=== PATIENT | female | born 1970 | race Two or more races ===

== ENCOUNTER 2016-10-19 11:25 | Outpatient (CLI) | payer OTHER ==
[~2016-10-19] VITALS: Ht 152.4 cm; Wt 56.8 kg
[2016-10-19 11:53] VITALS: BP 131/68; PULSE 73; RESP 18; Ht 152.4 cm; Wt 56.8 kg
[2016-10-19] MEDS ORDERED: MTF1000T PO (12:29)
[2016-10-19] MEDS ORDERED: GLIP5TAB13 PO (12:29)
[2016-10-19] MEDS ORDERED: SITA50TA2 PO (12:29)
--- NOTE | 2016-10-19 12:47 | PN ---
Date/Time of Note Date/Time of Note DATE: 10/19/16 TIME: 12:43 Outpatient Progress Note Chief Complaint TIA/migraine headaches/diabetes/ HPI TIA/patient was recently admitted, patient had weakness of right side, but at present no weakness on right side, patient also had right side eye watering, patient was told that patient had possible stroke on the right side, by health care specialist, but MRI is negative, Migraine headache patient has occasional migraine headache, patient on medication, Diabetes no pleuritic supple due to hypoglycemia, patient on multiple blood sugar medication, blood sugar control, Review of Systems Const: No Fever, no chills, no Wt. loss, no Fatigue, normal appetite, no diaphoresis. Eyes: No pain, no discharge, no redness, no visual change, no foreign body. ENT: No pain, no bleeding, no congestion, no sore throat, no dysphagia, no discharge or rhinitis. Lymph: No adenopathy, no tender nodes, no lymphedema. Resp: No SOB, no cough, no sputum, no wheezing, no chest pain. CV: No chest pain, no palpitaions, no HERNANDEZ, no PND, no edema. GI: Normal appetite, no pain, no nausea, no vomiting, no diarrhea, no blood, no constipation. : No frequency, no urgency, no dysuria, no hematuria, no flank pain, no discharge, no bleeding. Musc: no back pain, no neck pain, no knee pain, no restricted ROM. Skin: No rash, no skin lesions, no erythema, no laceration, no bruising, no pruritus. Neuro: Occasional migraine BOWEN, and dizziness, no syncope, no seizure, no focal- weakness. Endo: No polyuria, no polydypsia, no dry-skin, no temp-intolerance. Psych: No hallucinations, no depression, no anxiety, no suicidal ideation. Ext: No edema, no pain, no ulcer, no weakness. Physical Exam Vital Signs Date Time Temp Pulse Resp B/P Pulse Ox O2 Delivery O2 Flow Rate FiO2 10/19/16 11:53 98.2 73 18 131/68 99 Room Air General Appearance: A 46 year-old female who appears well-developed, well- nourished, in no acute distress. HEENT: Head normocephalic, atraumatic. Pupils equal, round, reactive to light and accommodate. Sclerae are no jaundice. Nasal turbinates pink without erythema or nasal discharge. Mucous membranes pink and moist without lesions. Oropharynx clear without any exudate or discharge. NECK: Supple. Trachea midline, No thyromegaly, No cervical lymphadenopathy, No mass, No carotid bruits, No JVD, Carotid pulses 2+ bilaterally. PULMONARY: Clear to auscultaion bilaterally, No retractions, Chest expansion symmetric bilaterally, no rales, no ronchi, no dulness on percussion. CARDIAC: Normal SI and S2, Regular rate and rythm, no murmur, gallop, or rub. GASTROINTESTINAL: Abdomen is soft, non-tender, Non Rigid, No distention, Positive bowel sounds x4 quadrants, Liver normal. SKIN: Warm, dry, no rash, no bruise, no echmosis. EXTREMITIES: Bilateral lower extremities normal, no edema, no phlabitus, pulse palpable, no contracture. MUSCULOSKELETAL: Spine Normal, Non-tender, Normal range of motion, No swelling, no deformity, no clubbing, or cyanosis, the patient has no edema to bilateral lower extremities, dorsalis pedis pulses palpable bilaterally. NEUROLOGIC: The patient is awake, alert, oriented, responding to yes/no questions appropriately, moving all extremities, cranial nerve intact, normal strenght, normal power, normal coordination, normal gait. Allergies Coded Allergies: No Known Drug Allergies (Verified Allergy, Unknown, 10/19/16) PMH Possible TIA/migraine headaches/diabetes Social Hx No smoking no drinking Family Hx Noncontributory Assessment/Plan Impression TIA/migraine headache/diabetes Plan Patient education done about diabetes and related problem, patient's hospitalization and lab and MRI discussed with the patient, Patient encouraged to follow with the primary care physician, Patient encouraged to control the diet control the blood sugar control the weight, Discussed with the patient, if any symptoms to call us or go to ER, Medications Home Meds Reported Medications Metformin* (Glucophage*) 1,000 Mg Tablet, 1000 MG PO DAILY, #30 TAB 10/19/16 Sitagliptin* (Januvia*) 50 Mg Tablet, 50 MG PO DAILY, #30 TAB 10/19/16 Glipizide* (Glipizide*) 5 Mg Tablet, 5 MG PO AC BREAKFAST, TAB 10/19/16 MARLENE MARTINEZ MD Oct 19, 2016 12:47
== END 2016-10-19 17:00 | disposition home or self-care (01) ==
LOC: DCC 11:25
PROVIDERS: ATTEND Internal Medicine
DX: G45.9 Transient cerebral ischemic attack, unspecified (principal); E11.9 Type 2 diabetes mellitus without complications; G43.909 Migraine, unspecified, not intractable, without status migrainosus